=== PATIENT | female | born 1990 | race Caucasian/White ===

== ENCOUNTER 2022-12-05 05:29 | Outpatient (CLI) | payer BC ==
[~2022-12-05] VITALS: Ht 157.5 cm; Wt 90.9 kg
[2022-12-05] MEDS ORDERED: ESCI20TA PO (12:21)
[2022-12-05] MEDS ORDERED: LISI5TAB20 PO (12:21)
[2022-12-05] MEDS ORDERED: FEXO1TAB43 PO (12:21)
[2022-12-05] MEDS ORDERED: HYDR-3584 PO (12:32)
== END 2022-12-10 08:49 | disposition home or self-care (01) ==
LOC: PREOP 05:29
PROVIDERS: ATTEND Otolaryngology Otolaryngology/Facial Plastic Surgery
DX: Z01.818 Encounter for other preprocedural examination (principal)

== ENCOUNTER 2022-12-13 06:21 | Day surgery (SDC) | payer BC ==
[2022-12-13] VITALS (12 sets, daily range): BP systolic 107–146; BP diastolic 63–104
[~2022-12-13 06:21] MED LIST: ESCI20TA PO; FEXO1TAB43 PO; HYDR-3584 PO; LISI5TAB20 PO
[2022-12-13] MEDS ORDERED: MIDAZOLAM 2 MG/2 ML (VERSED) VIAL IV ONE (06:45)
[2022-12-13] MEDS ORDERED: FAMOTIDINE 20MG/2ML IV (PEPCID) IV ONE (06:45)
[2022-12-13] MEDS ORDERED: NS IV 1000 ML 1,000 ML IV SCH (07:00)
[2022-12-13] MEDS ORDERED: APAP 325 MG/10.15 ML LIQ (TYLENOL) UDC PO PRN (07:00)
[2022-12-13] MEDS ORDERED: oxyCODONE 5 MG/5 ML ORAL SOLN (roxiCODONE) 5 ML UDC PO PRN (07:00)
--- NOTE | 2022-12-13 07:00 | Progress Note-Pre Operative ---
Pre-Operative Progress Note Date of Available H&P: Dec 13, 2022 Date H&P Reviewed: Dec 13, 2022 Time H&P Reviewed: 06:30 History & Physical: H&P Reviewed, Patient Examed, No changes noted Changes from last HP none Pre-Operative Diagnosis: Chronic Tonsillitis ASHLEY GARSIA MD Dec 13, 2022 07:00
--- NOTE | 2022-12-13 07:00 | Progress Note-Post Operative ---
Post-Operative Progess Note Surgeon (s)/Glaciologist (s) Surgeon ASHLEY GARSIA MD Glaciologist n/a Pre-Operative Diagnosis Chronic Tonsillitis Post-Operative Diagnosis same Post-Op Procedure Note Date of Procedure: Dec 13, 2022 Name of Procedure Performed: Tonsillectomy Description & Findings Description and Findings: n/a Anesthesia Type get Estimated Blood Loss minimal Packing none. Specimen(s) collected/removed tonsils ASHLEY GARSIA MD Dec 13, 2022 07:00
[2022-12-13] MEDS ORDERED: proPOfol 200 MG/20 ML (DIPRIVAN) VIAL IV ONE (07:24)
[2022-12-13] MEDS ORDERED: MIDAZOLAM 2 MG/2 ML (VERSED) VIAL ONE (07:24)
[2022-12-13] MEDS ORDERED: LIDOCAINE PF 2% 5 ML (XYLOCAINE) VIAL ONE (07:24)
[2022-12-13] MEDS ORDERED: fentaNYL INJ 100 MCG/2 ML AMP ONE (07:24)
[2022-12-13] MEDS ORDERED: GLYCOPYRROLATE 0.2 MG/ML (ROBINUL) 2 ML VIAL ONE (07:24)
[2022-12-13] MEDS ORDERED: ONDANSETRON 4 MG/2 ML (SDV) Z0FRAN ONE (07:24)
[2022-12-13] MEDS ORDERED: NEOSTIGMINE (BLOXIVERZ ) 1 MG/1ML 10 ML VIAL ONE (07:28)
[2022-12-13] MEDS ORDERED: LACTATED RINGERS 1,000 ML IV PRN (07:30)
[2022-12-13] MEDS ORDERED: ROCURONIUM 50 MG/5 ML (ZEMURON) VIAL IV ONE (07:55)
[2022-12-13] MEDS ORDERED: SEVOFLURANE (ULTANE) 15 ML INHAL SOLN ONE (08:26)
[2022-12-13] MEDS ORDERED: ONDANSETRON 4 MG/2 ML (SDV) Z0FRAN IVP PRN (08:30)
[2022-12-13] MEDS ORDERED: morphine INJ 10 MG/ML 1ML (SYR OR VIAL) IVP ONE (08:30)
[2022-12-13] MEDS ORDERED: HYDROmorphone 2 MG/ML VIAL (DILAUDID) IV ONE (08:30)
[2022-12-13] MEDS ORDERED: morphine INJ 10 MG/ML 1ML (SYR OR VIAL) ONE (08:41)
[2022-12-13] MEDS ORDERED: DEXAINTSOL PO (08:43)
[2022-12-13] MEDS ORDERED: AZIT200S47 PO (08:43)
[2022-12-13] MEDS ORDERED: TETRACAINESUCKERS MT (08:43)
[2022-12-13] MEDS ORDERED: OXYC5SOL19 PO (08:45)
[2022-12-13] MEDS ORDERED: oxyCODONE 5 MG/5 ML ORAL SOLN (roxiCODONE) 5 ML UDC ONE ×2 (10:48→10:52)
[2022-12-13] MEDS ORDERED: ONDANSETRON 4 MG/2 ML (SDV) Z0FRAN IVP ONE (11:30)
--- NOTE | 2022-12-13 14:33 | Anesthesia-General Post-Op ---
General Patient Condition Mental Status/LOC: Same as Preop Cardiovascular: Satisfactory Nausea/Vomiting: Absent Respiratory: Satisfactory Pain: Controlled Complications: Absent Post Op Complications Complications None Follow Up Care/Instructions Patient Instructions None needed. Anesthesia/Patient Condition Patient Condition Patient was doing well this morning after the procedure with no complaints, stable vital signs, no apparent adverse anesthesia problems. No complications reported per nursing. JERRY WARD 24, 2023 14:33
== END 2022-12-13 11:40 | disposition home or self-care (01) ==
LOC: SDC 06:21
PROVIDERS: ATTEND Otolaryngology Otolaryngology/Facial Plastic Surgery
DX: J35.3 Hypertrophy of tonsils with hypertrophy of adenoids (principal); J03.91 Acute recurrent tonsillitis, unspecified; J98.8 Other specified respiratory disorders; R19.6 Halitosis; E66.9 Obesity, unspecified; Z68.37 Body mass index [BMI] 37.0-37.9, adult; Z28.310 Unvaccinated for COVID-19
CPT/HCPCS: 84703; 87081